=== PATIENT | female | born 1940 | race Caucasian/White ===

== ENCOUNTER 2020-01-12 08:46 | Emergency (ER) | payer MEDICARE ==
[~2020-01-12] VITALS: Ht 165.1 cm; Wt 63.6 kg
[2020-01-12] MEDS ORDERED: normal saline 1000ml 1,000 ML IV ONE (11:27)
--- NOTE | 2020-01-12 11:30 | NUR ---
Patient is refusing all interventions until xray of back is ordered, labs and IV fluids are ordered at this time, MD made aware and will be talking with patient and daughter shortly.
[2020-01-12 12:42] VITALS: BP 137/82
[2020-01-12] MEDS ORDERED: bupivacaine 0.25%/epinephrine 1:200,000 inj (contains preserv. MDV) IJ ONE ×2 (13:40→13:50)
== END 2020-01-12 14:12 | disposition home or self-care (01) ==
LOC: ER 08:47
DX: S39.012A Strain of muscle, fascia and tendon of lower back, initial encounter (principal); M81.0 Age-related osteoporosis without current pathological fracture; Z88.5 Allergy status to narcotic agent; Z88.8 Allergy status to other drugs, medicaments and biological substances; W07.XXXA Fall from chair, initial encounter; Y93.B2 Activity, push-ups, pull-ups, sit-ups; Y92.039 Unspecified place in apartment as the place of occurrence of the external cause; Y99.8 Other external cause status
CPT/HCPCS: 20552; 72131; 99284